=== PATIENT | male | born 1995 | race Caucasian/White ===

== ENCOUNTER 2016-05-21 03:03 | Emergency (ER) | payer BC, OTHER ==
[~2016-05-21] VITALS: Ht 172.7 cm; Wt 68.0 kg
[2016-05-21 03:21] VITALS: TEMP 36.6; Ht 172.7 cm; Wt 68.0 kg
[2016-05-21 03:57] VITALS: O2SAT 97
[2016-05-21 04:23] LABS: BUN/CREATININE RATIO 13.2 (10-20); CALCIUM 8.6 mg/dl (8.5-10.1); CREATININE 1.2 mg/dl (0.60-1.40); POTASSIUM 3.7 mmol/L (3.5-5.1)
--- NOTE | 2016-05-21 07:01 | EMERGENCY ROOM VISIT NOTE ---
History Report prepared by Med: Guido Allen Under the Supervision of: Dr. Radha Graham D.O. First contact with patient: 03:25 Chief Complaint: ALCOHOL OVERDOSE Stated Complaint: ALCOHOL OVERDOSE Nursing Triage Summary: [place] by passerby. bystander took patient to ed. Patient unresponsive and vomiting upon entry. History of Present Illness The patient is a young male who presents to the Emergency Room with complaints of constant alcohol intoxication beginning shortly prior to arrival. Per nursing staff, the patient was found sleeping on a bench outside. He was found by strangers who drove him to the ED. He vomited in the car en route. HPI limited secondary to alcohol intoxication. Source of History: patient History Limited By: intoxication (alcohol) Onset: shortly prior to arrival Quality: other (alcohol intoxication) Timing: constant Associated Symptoms: + vomiting Review of Systems ROS limited secondary to alcohol intoxication. Past Medical & Surgical Unobtainable secondary to alcohol intoxication. Family History Unobtainable secondary to alcohol intoxication. Social History Smoking Status: Never Smoker Social History: Unobtainable secondary to alcohol intoxication. Current/Historical Medications No Active Prescriptions or Reported Meds Allergies Coded Allergies: No Known Allergies (Unverified , 05/21/16) Physical Exam Vital Signs Date Time Temp Pulse Resp B/P Pulse Ox O2 Delivery O2 Flow Rate FiO2 05/21/16 07:34 64 18 114/56 95 Room Air 05/21/16 07:00 63 05/21/16 06:20 85 16 112/63 97 Room Air 05/21/16 04:32 88 16 82/52 99 Room Air 05/21/16 03:57 97 Nasal Cannula 2.0 05/21/16 03:26 95 05/21/16 03:21 97 Room Air 05/21/16 03:21 36.6 95 18 140/92 99 Room Air Physical Exam General: Unresponsive. Smells of alcohol. Vomit noted around mouth. HEENT: Head - normocephalic. Abrasion noted to the right eyebrow. Pupils are 2 mm and non-reactive to light. Extraocular eye muscles are intact, and sclera are anicteric. Nose - moist nasal mucosa without discharge. Mouth - moist buccal mucosa. Oropharynx is nonerythematous and there is no tonsillar exudate or edema noted. Neck: Supple; no JVD, nuchal rigidity, cervical lymphadenopathy,. Heart: Regular rate and rhythm. There is a normal S1 and S2 with no murmurs, clicks, or gallops appreciated. Lungs: Clear to auscultation bilaterally with no wheezes, rales, or rhonchi. Abdomen: Soft, completely nontender, nondistended, with good bowel sounds. There are no palpable pulsatile masses or hepatosplenomegaly. There is no guarding, rigidity, or rebound noted. Extremities: No evidence of cyanosis, clubbing, or edema. There are easily palpable peripheral pulses. Skin: warm and dry with good turgor and no rashes. Medical Decision & Procedures ER Provider Diagnostic Interpretation: CT results per statrad and my review. CT HEAD: No ICH, mass effect or edema. No skull fracture identified, although evaluation is limited due to patient motion. Laboratory Results 05/21/16 03:55 Test 05/21/16 03:55 Anion Gap 12.0 mmol/L (3-11) Est Creatinine Clear Calc Drug Dose 18.9 ml/min Estimated GFR () 51.1 Estimated GFR (Non- 44.1 BUN/Creatinine Ratio 13.2 (10-20) Calcium Level 8.6 mg/dl (8.5-10.1) Ethyl Alcohol mg/dL 305.0 mg/dl (0-3) Laboratory results per my review. ED Course 0342: Past medical records reviewed. The patient was evaluated in room B7. A complete history and physical exam was performed. The patient was observed on the echometer engineer and pulse oximeter. Labs were drawn as above. The patient was kept in the prone position to avoid aspiration. The patient went for CT scan of the brain because of the trauma to the right side of his face. 0456: I reassessed the patient. He is asleep and is hemodynamically stable. 0655: I checked in on the patient. He is still asleep. 0730: The patient was signed out to Dr. Orozco at the change of shift. Medical Decision The patient is a young male who presents to the ED with alcohol intoxication. Differential diagnosis includes alcohol overdose, drug intoxication, hypoglycemia, head injury, as well as other etiologies were considered. Laboratory studies: Alcohol of 305. Glucose of 104. Normal renal function. Patient presents to the emergency department after ingesting a large amount of alcohol. He was monitored here and remained hemodynamically stable. He will be here until he is more clinically sober and can be further evaluated. CT scan of the brain was unremarkable. The case was signed out to Dr. Orozco at change of shift. Impression Primary Impression: Alcohol overdose Scribe Attestation The scribe's documentation has been prepared under my direction and personally reviewed by me in its entirety. I confirm that the note above accurately reflects all work, treatment, procedures, and medical decision making performed by me. Departure Information Dispostion Still a Patient (Signed out to Dr. Orozco) Prescriptions No Active Prescriptions or Reported Meds Referrals No Doctor, Assigned (PCP) Patient Instructions My [facility]
--- NOTE | 2016-05-21 07:57 | DIAGNOSTIC IMAGING REPORT ---
CT HEAD WITHOUT CONTRAST (CT) CLINICAL HISTORY: Head pain status post trauma COMPARISON STUDY: No previous studies for comparison. TECHNIQUE: Axial CT of the brain is performed from the vertex to the skull base. IV contrast was not administered for this examination. CT DOSE: 1498.81 mGy.cm FINDINGS: No intra or extra-axial mass lesions are visualized. There is no CT evidence of acute cortical infarction. There is no evidence of midline shift. There is no acute hemorrhage. No calvarial fractures are visualized. There is no evidence of pathologic ventricular dilatation. There is a trace right maxilla sinus air-fluid level. There is a right maxillary sinus retention cyst. IMPRESSION: No acute intracranial findings Electronically signed by: Darrin Gonzalez M.D. 05/21/2016 7:55 AM Dictated Date/Time: 05/21/2016 7:54 AM
--- NOTE | 2016-05-21 10:09 | EMERGENCY ROOM VISIT NOTE ---
ED Visit Note First contact with patient: 10:04 I assumed care at the change of shift, Dr. Graham had been the initial physician. At around 10 AM, the patient was awake and interactive, he was not slurring his words. He complained of no pain. He was drinking Gatorade. He could not remember how he had suffered the contusion to the right eyebrow. The patient is doing well, his alcohol seems to have cleared. I do believe he is stable for discharge, rest, hydration, avoidance of alcohol were suggested.
[2016-05-21 10:14] VITALS: BP 123/55; PULSE 81; O2SAT 100
== END 2016-05-21 10:17 | disposition home or self-care (01) ==
LOC: EDBD 03:04 → C.EDB 03:04
DX: F10.129 Alcohol abuse with intoxication, unspecified (principal); S00.81XA Abrasion of other part of head, initial encounter; X58.XXXA Exposure to other specified factors, initial encounter

== ENCOUNTER → 2017-06-15 | Outpatient (CLI) | payer BC, OTHER ==
--- NOTE | 2017-06-15 13:20 | DIAGNOSTIC IMAGING REPORT ---
R KNEE 4 OR MORE HISTORY: 21 years-old Male RIGHT KNEE PAIN acute right knee pain without reported trauma COMPARISON: None available TECHNIQUE: 4 views of the right knee FINDINGS: No acute fracture, dislocation or significant degenerative changes. Small knee joint effusion with mild soft tissue swelling circumferentially about the knee. No osteochondral defect or opaque foreign body. IMPRESSION: Small knee joint effusion and mild soft tissue swelling without fracture. The above report was generated using voice recognition software. It may contain grammatical, syntax or spelling errors. Electronically signed by: Juan Gómez M.D. 06/15/2017 1:19 PM Dictated Date/Time: 06/15/2017 1:17 PM
== END | disposition home or self-care (01) ==
LOC: C.RDSM 13:00
PROVIDERS: ATTEND Internal Medicine
DX: M25.561 Pain in right knee (principal)